=== PATIENT | female | born 1970 | race Caucasian/White ===

== ENCOUNTER 2016-06-09 06:36 | Inpatient (IN) | payer OTHER ==
[~2016-06-09] VITALS: Ht 165.1 cm; Wt 56.2 kg
[2016-06-09 08:38] LABS: HEMOGLOBIN 16.4 gm/dl (12.3-15.3)
[2016-06-09 08:39] LABS: WHITE BLOOD COUNT 36.2 K/UL (4.5-11.0)
[2016-06-09 12:50] LABS: BUN/CREATININE RATIO 19 (0-10)
[2016-06-09] MEDS ORDERED: SERTRALINE HCL50 MG PO (14:56)
[2016-06-09] MEDS ORDERED: PROTONIX40 MG PO (14:57)
[2016-06-09] MEDS ORDERED: SUBOXONE 8 MG-1 EACH SL (14:57)
[2016-06-09] MEDS ORDERED: HUMALOG MI100 UNIT/1 SQ (14:59)
[2016-06-09 15:44] LABS: BUN/CREATININE RATIO 19 (0-10)
[2016-06-09 16:18] LABS: BUN/CREATININE RATIO 20 (0-10)
[2016-06-09 18:24] LABS: BUN/CREATININE RATIO 24 (0-10)
[2016-06-09 22:51] LABS: BUN/CREATININE RATIO 20 (0-10)
[2016-06-10 02:33] LABS: WHITE BLOOD COUNT 29.8 K/UL (4.5-11.0)
[2016-06-10 02:38] LABS: HEMOGLOBIN 14.4 gm/dl (12.3-15.3); RED BLOOD COUNT 4.46 M/UL (4.00-5.10)
[2016-06-10 02:48] LABS: BUN/CREATININE RATIO 25 (0-10)
[2016-06-10 07:12] LABS: BUN/CREATININE RATIO 20 (0-10)
[2016-06-10 16:39] LABS: BUN/CREATININE RATIO 13 (0-10)
[2016-06-11 04:40] LABS: HEMOGLOBIN 12.5 gm/dl (12.3-15.3)
[2016-06-11 05:00] LABS: BUN/CREATININE RATIO 5 (0-10)
[2016-06-11 05:07] LABS: RED BLOOD COUNT 3.82 M/UL (4.00-5.10); WHITE BLOOD COUNT 17.8 K/UL (4.5-11.0)
[2016-06-12 03:25] LABS: HEMOGLOBIN 10.8 gm/dl (12.3-15.3)
[2016-06-12 03:28] LABS: RED BLOOD COUNT 3.35 M/UL (4.00-5.10); WHITE BLOOD COUNT 9.5 K/UL (4.5-11.0)
[2016-06-12 03:45] LABS: BUN/CREATININE RATIO 13 (0-10)
[2016-06-13 04:53] LABS: HEMOGLOBIN 11.4 gm/dl (12.3-15.3); RED BLOOD COUNT 3.62 M/UL (4.00-5.10)
[2016-06-13 05:26] LABS: BUN/CREATININE RATIO 10 (0-10)
[2016-06-14 04:44] LABS: WHITE BLOOD COUNT 9.3 K/UL (4.5-11.0)
[2016-06-14 04:45] LABS: HEMOGLOBIN 14.2 gm/dl (12.3-15.3); RED BLOOD COUNT 4.35 M/UL (4.00-5.10)
[2016-06-14 05:06] LABS: BUN/CREATININE RATIO 8 (0-10)
[2016-06-15 07:09] LABS: BUN/CREATININE RATIO 13 (0-10)
[2016-06-15 07:29] LABS: HEMOGLOBIN 15.1 gm/dl (12.3-15.3); RED BLOOD COUNT 4.7 M/UL (4.00-5.10); WHITE BLOOD COUNT 9.4 K/UL (4.5-11.0)
[2016-06-16 06:44] LABS: HEMOGLOBIN 11.3 gm/dl (12.3-15.3); RED BLOOD COUNT 3.5 M/UL (4.00-5.10); WHITE BLOOD COUNT 11.4 K/UL (4.5-11.0)
[2016-06-16 07:21] LABS: BUN/CREATININE RATIO 10 (0-10)
[2016-06-17 06:01] LABS: HEMOGLOBIN 11.9 gm/dl (12.3-15.3); RED BLOOD COUNT 3.64 M/UL (4.00-5.10); WHITE BLOOD COUNT 13.7 K/UL (4.5-11.0)
[2016-06-17 07:02] LABS: BUN/CREATININE RATIO 10 (0-10)
[2016-06-18 06:55] LABS: HEMOGLOBIN 11.6 gm/dl (12.3-15.3); RED BLOOD COUNT 3.6 M/UL (4.00-5.10); WHITE BLOOD COUNT 11.1 K/UL (4.5-11.0)
[2016-06-18 07:13] LABS: BUN/CREATININE RATIO 10 (0-10)
[2016-06-18] MEDS ORDERED: COLACE 100MG C100 MG PO (13:54)
[2016-06-18] MEDS ORDERED: LEVEMIR FL100 UNIT/1 SQ (13:56)
[2016-06-18] MEDS ORDERED: NOVOLOG FL100 UNIT/1 SQ (13:57)
[2016-06-18] MEDS ORDERED: LEVAQUIN750 MG PO (13:57)
[2016-06-18] MEDS ORDERED: CYMBALTA20 MG PO (14:16)
== END 2016-06-18 14:58 | disposition home or self-care (01) | DRG 871 ==
LOC: ER1 06:36 → MED SURG 4 09:15 → ZEROF 09:15 → CCU 09:15 → MED SURG 4 06-12 14:58
PROVIDERS: Emergency Medicine; Internal Medicine; Physician Assistant; ADMIT Family Medicine
PROC: B51B1ZA Fluoroscopy of Right Lower Extremity Veins using Low Osmolar Contrast, Guidance (ICD-10-PCS; principal; 2016-06-09)
PROC: 06HM33Z Insertion of Infusion Device into Right Femoral Vein, Percutaneous Approach (ICD-10-PCS; principal; 2016-06-09)
DX: A41.9 Sepsis, unspecified organism (principal); E13.10 Other specified diabetes mellitus with ketoacidosis without coma; K85.90 Acute pancreatitis without necrosis or infection, unspecified; J18.9 Pneumonia, unspecified organism; R57.1 Hypovolemic shock; E87.1 Hypo-osmolality and hyponatremia; F11.20 Opioid dependence, uncomplicated; K59.03 Drug induced constipation; T40.2X5A Adverse effect of other opioids, initial encounter; F10.10 Alcohol abuse, uncomplicated; F17.210 Nicotine dependence, cigarettes, uncomplicated; R00.0 Tachycardia, unspecified; R06.00 Dyspnea, unspecified; E87.6 Hypokalemia; D75.89 Other specified diseases of blood and blood-forming organs; N32.89 Other specified disorders of bladder; Z91.14 Patient's other noncompliance with medication regimen; G89.4 Chronic pain syndrome; Y92.009 Unspecified place in unspecified non-institutional (private) residence as the place of occurrence of the external cause; Z79.4 Long term (current) use of insulin
CPT/HCPCS: 36415; 36600; 71010; 74150; 80048; 80053; 80202; 80307; 81001; 82009; 82150; 82800; 82803; 82962; 83605; 83690; 83735; 83880; 84100; 84132; 84484; 84681; 84703; 85007; 85027; 87040; 87070; 87205; 93005; 96372; 96374; 96375; 96376; 99285; C9113; G0480; J1335; J1650; J1815; J2250; J2270; J2405; J3370; J3411; J3475; J3480; J7030; J7050; J7070; Q0162